=== PATIENT | male | born 1975 | race Caucasian/White ===

== ENCOUNTER → 2016-12-13 | Outpatient (CLI) | payer OTHER ==
[2016-04-21 19:01] VITALS: BP 120/82
--- NOTE | 2016-12-13 13:55 | RAD ---
3 views lumbar spine 12/13/2016 Clinical indication: Disability evaluation. Comparison: None. Findings: Right upper quadrant cholecystectomy clips. There is straightening of the normal lumbar lordosis which may be positional. Vertebral body heights and disc spaces maintained. No acute lumbar spine fracture or subluxation. Impression: No acute osseous abnormality.
== END | disposition home or self-care (01) ==
LOC: RAD 10:17
PROVIDERS: ATTEND Neuromusculoskeletal Medicine, Sports Medicine
DX: M54.5 Low back pain (principal)
CPT/HCPCS: 72100

== ENCOUNTER → 2017-04-02 | Outpatient (CLI) | payer OTHER ==
[2016-04-21 19:01] VITALS: BP 120/82
[2017-04-02 19:55] LABS: BASO # 0.1 x10^3/uL (0.0-0.2); BASO % 1 % (0-3); EOS # 0.2 x10^3/uL (0.0-0.7); EOS % 3 % (0-3); HEMATOCRIT 45.2 % (39.0-53.0); HEMOGLOBIN 15.3 g/dL (13.0-17.5); LYMPH # 2.5 x10^3/uL (1.0-4.8); LYMPH % 38 % (24-48); MEAN CORPUSCULAR HEMOGLOBIN 30 pg (25-35); MEAN CORPUSCULAR HGB CONC 34 g/dL (31-37); MEAN CORPUSCULAR VOLUME 89 fL (79-100); MONO # 0.5 x10^3/uL (0.0-1.1); MONO % 8 % (0-9); NEUT # 3.2 x10^3uL (1.8-7.7); NEUT % 50 % (31-73); PLATELET COUNT 184 x10^3/uL (140-400); RED BLOOD COUNT 5.11 x10^6/uL (4.30-5.70); WHITE BLOOD COUNT 6.5 x10^3/uL (4.0-11.0)
[2017-04-02 20:01] LABS: ALBUMIN 3.5 g/dL (3.4-5.0); ALBUMIN/GLOBULIN RATIO 1.1 (1.0-1.7); CALCIUM 8.3 mg/dL (8.5-10.1); CREATININE 1.1 mg/dL (0.7-1.3); GFR 73.1; POTASSIUM 4.5 mmol/L (3.5-5.1); TOTAL BILIRUBIN 0.1 mg/dL (0.2-1.0); TOTAL PROTEIN 6.7 g/dL (6.4-8.2)
[2017-04-02 22:54] LABS: % BASOS 1 % (0-3); % EOS 2 % (0-5); % LYMPHS 32 % (24-48); % MONOS 6 % (0-10); % SEGS 50 % (35-66)
[2017-04-02 22:55] LABS: PLT ESTIMATE ADEQUATE (ADEQUATE)
[2017-04-03 12:43] LABS: THYROID STIM HORMONE (TSH) 2.529 uIU/mL (0.358-3.740)
== END | disposition home or self-care (01) ==
LOC: SPEC 18:12
PROVIDERS: ATTEND Nurse Practitioner
DX: R53.83 Other fatigue (principal); R79.89 Other specified abnormal findings of blood chemistry; F17.200 Nicotine dependence, unspecified, uncomplicated; F10.10 Alcohol abuse, uncomplicated; F12.10 Cannabis abuse, uncomplicated
CPT/HCPCS: 36415; 80053; 80061; 84443; 85007; 85025

== ENCOUNTER 2020-11-21 20:56 | Emergency (ER) | payer OTHER ==
[~2020-11-21] VITALS: Ht 162.6 cm; Wt 94.6 kg
--- NOTE | 2020-11-21 21:11 | PHYS DOC ---
Past History Past Medical History: No Pertinent History Past Surgical History: Appendectomy, Cholecystectomy Smoking: Less than 1pk/day Alcohol Use: Heavy Drug Use: Marijuana, Methamphetamine General Adult EDM: Chief Complaint: RIB PAIN HPI: HPI: ".. I got this bad rib pain here on Lt. .. .Maybe got it lift heavy shit.. it funny.... I was helping a friend in his garage... but the pain did not start until later.. It been going on about over a week.. and not getting better...".." Maybe I ripped something... ".." I just did nt start right away.. ".. :" The pain has been constant tonight..." Patient is a 45 year old male who presents with above hx and complaints Lt chest wall pain. Pt. rates pain /10.. worse with any movement, deep breaths , cough or twisting movement. Patient has been complaining of some diaphoresis complaints. Pt. does smoke. Patient in past has used methamphetamine but currently not use any drug. Patient denies any history of cardiac disorders. Patient has had some problems with hypertension in the past. Patient does have a strong family history with mother and father both at age 50s due to hypertension and myocardial infarction. Does have 1 sister she has no health problems. No recent travel. No specific ill contacts. 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 Patient also lifts while working at [employer]. Patient states pain is so uncomfortable night he cannot get to sleep. Review of Systems: Review of Systems: Constitutional: Denies fever or chills Eyes: Denies change in visual acuity HENT: Denies nasal congestion or sore throat Respiratory: Denies cough or shortness of breath Cardiovascular: Denies chest pain or edema GI: Denies abdominal pain, nausea, vomiting, bloody stools or diarrhea : Denies dysuria Musculoskeletal: Denies back pain or joint pain Integument: Denies rash Neurologic: Denies headache, focal weakness or sensory changes Endocrine: Denies polyuria or polydipsia Lymphatic: Denies swollen glands Psychiatric: Denies depression or anxiety Family History: Family History: Father of MS and hypertension age 50. Mother of MS age 50s with hypertension MS Current Medications: Current Meds: See nursing for home meds Allergies: Allergies: Allergies Coded Allergies Type Severity Reaction Last Updated Verified codeine Allergy Unknown 08/25/13 Yes hydrocodone Allergy Unknown 11/21/20 Yes Physical Exam: PE: Constitutional: Moderate acute distress, non-toxic appearance. [] HENT: Normocephalic, atraumatic, bilateral external ears normal, oropharynx moist, no oral exudates, nose normal. Poor dentition Eyes: PERRLA, EOMI, conjunctiva normal, no discharge. [] Neck: Normal range of motion, no tenderness, supple, no stridor. [] Cardiovascular:Heart rate regular rhythm, no murmur, PMI to the left. Monitor at bedside shows somewhat of J-point elevation . Lungs & Thorax: Bilateral breath sounds equal apex with scattered wheezes on auscultation []. Does seem to have some left wall tenderness on palpation Abdomen: Bowel sounds normal, soft, no tenderness, no masses, no pulsatile masses. Obese. Old surgery scars Skin: Warm, diaphoretic, no erythema, no rash. [] Back: No tenderness, no CVA tenderness. [] Extremities: No tenderness, no cyanosis, no clubbing, ROM intact, no edema. No cording appreciated Neurologic: Alert and oriented X 3, normal motor function, normal sensory function, no focal deficits noted. [] Psychologic: Affect anxious, judgement normal, mood normal. [] EKG: EKG: My interpretation EKG shows a sinus rhythm with a right bundle branch block. No findings of acute STEMI or contralateral changes. Time of EKG is 2308 Radiology/Procedures: Radiology/Procedures: [][address] [address] IMAGING REPORT Signed PATIENT: OLIVIER ZABALA ACCOUNT: [id number] : 1975 LOCATION: ER AGE: 45 SEX: M EXAM STATUS: REG ER ORD. PHYSICIAN: KALEN ANGELES MD REASON: Pleurisy chest wall pain left, OMNI 350, 100ml PROCEDURE: CT ANGIOGRAPHY CHEST INDICATION: Reason: Pleurisy chest wall pain left, OMNI 350, 100ml / Spl. Instructions: / History: COMPARISON: Chest x-ray same day TECHNIQUE: Axial CT images obtained through the chest. Intravenous contrast utilized. Angiogram 3D images processed per protocol. One or more of the following individualized dose reduction techniques were utilized for this examination: 1. Automated exposure control; 2. Adjustment of the mA and/or kV according to patient size; 3. Use of iterative reconstruction technique. FINDINGS: Minimal dependent opacities at left lung base could be from atelectasis. Linear opacity right lung which can be seen with atelectasis or scarring. No evidence of pneumothorax. Nonobstructive left renal stone. Partially visualized liver is low density which can be seen with fatty infiltration. Mildly prominent lymph node precarinal region measuring 9 mm short axis. There is only a small amount of contrast within the thoracic aorta therefore the lumen is limited evaluation. No aneurysm is seen. Mildly prominent lymph nodes left axilla measuring up to 9 mm short axis. There are some degenerative changes of the spine. Mild loss of height of T4 vertebral body. IMPRESSION: No central pulmonary embolus. Borderline size lymph node precarinal region as well as left axilla. Mild compression deformity T4 Electronically signed by: Rony Alford MD (11/22/2020 12:38 AM) DESKTOP- [id number] DICTATED AND SIGNED BY: RONY ALFORD MD DATE: 11/22/2028 CC: KALEN ANGELES MD; PCP,NO ~MTH0 [address] [place] [address] IMAGING REPORT Signed PATIENT: OLIVIER ZABALA ACCOUNT: [id number] : 1975 LOCATION: ER AGE: 45 SEX: M EXAM STATUS: REG ER ORD. PHYSICIAN: KALEN ANGELES MD REASON: cp, injury Lt chest wall, MID LEFT CHEST PAIN ANT.-POST. PROCEDURE: CHEST PA & LATERAL Exam: Chest 2 views INDICATION: Injury, left chest wall TECHNIQUE: Frontal and lateral views of the chest Comparisons: None FINDINGS: The cardiomediastinal silhouette and pulmonary vessels are within normal limits. The lung and pleural spaces are clear. IMPRESSION: No acute cardiopulmonary process. Electronically signed by: Selena Rader MD (11/21/2020 10:17 PM) [facility] DICTATED AND SIGNED BY: SELENA RADER MD DATE: 11/21/206 CC: KALEN ANGELES MD; PCP,NO ~MTH0 0 Heart Score: C/O Chest Pain: Yes HEART Score for Chest Pain: HEART Score for Chest Pain Response (Comments) Value History Moderately Suspicious 1 ECG Nonspecific Repolarizatio 1 Age >45 - < 65 1 Risk Factors 1 or 2 Risk Factors 1 Troponin >1-<3x Normal Limit 1 Total 5 Risk Factors: Risk Factors: DM, Current or recent (<one month) smoker, HTN, HLP, family history of CAD, obesity. Risk Scores: Score 0 - 3: 2.5% MACE over next 6 weeks - Discharge Home Score 4 - 6: 20.3% MACE over next 6 weeks - Admit for Clinical Observation Score 7 - 10: 72.7% MACE over next 6 weeks - Early Invasive Strategies Course & Med Decision Making: Course & Med Decision Making Pertinent Labs and Imaging studies reviewed. (See chart for details) Discussed presentation, testing and tx plan with Dr. Lira, requested pt. transfer to [facility] Discussed presentation, testing and tx.plan with Dr. Mireles- accept pt in transfer for cardiology consult.0001 Hrs. Discussed presentation, testing and tx plan with Dr. Wren-0015 hrs. Impression: 1. Chest Pain 2. MS- Trop. 0.057 3. HTN 4. Tobacco use [] Dragon Disclaimer: Dragon Disclaimer: This electronic medical record was generated, in whole or in part, using a voice recognition dictation system. Departure Departure: Referrals: PCP,NO (PCP) KALEN ANGELES MD Nov 21, 2020 21:11
[2020-11-21] MEDS ORDERED: KETOROLAC 60 MG/2 ML VIAL. IM ONE (21:15)
--- NOTE | 2020-11-21 22:20 | RAD ---
Exam: Chest 2 views INDICATION: Injury, left chest wall TECHNIQUE: Frontal and lateral views of the chest Comparisons: None FINDINGS: The cardiomediastinal silhouette and pulmonary vessels are within normal limits. The lung and pleural spaces are clear. IMPRESSION: No acute cardiopulmonary process. Electronically signed by: Selena Hancock MD (11/21/2020 10:17 PM) BERENICE
[2020-11-21] MEDS ORDERED: IOHEXOL 350 MG/ML 100 ML VIAL. IV ONE (22:30)
[2020-11-21] MEDS ORDERED: CONTRAST GIVEN. MC PRN (22:30)
[2020-11-21] MEDS ORDERED: IV RINGERS SOLUTION,LACTATED 1,000 ML IV SCH (22:30)
[2020-11-21 23:23] LABS: BASO % 0 % (0-3); EOS # 0.2 x10^3/uL (0.0-0.7); EOS % 2 % (0-3); HEMATOCRIT 45.4 % (39.0-53.0); HEMOGLOBIN 15.4 g/dL (13.0-17.5); LYMPH # 2.4 x10^3/uL (1.0-4.8); LYMPH % 30 % (24-48); MEAN CORPUSCULAR HEMOGLOBIN 30 pg (25-35); MEAN CORPUSCULAR HGB CONC 34 g/dL (31-37); MEAN CORPUSCULAR VOLUME 88 fL (79-100); MONO # 0.6 x10^3/uL (0.0-1.1); MONO % 8 % (0-9); NEUT # 4.6 x10^3uL (1.8-7.7); NEUT % 59 % (31-73); PLATELET COUNT 225 x10^3/uL (140-400); RED BLOOD COUNT 5.15 x10^6/uL (4.30-5.70); RED CELL DISTRIBUTION WIDTH 13.5 % (11.5-14.5); WHITE BLOOD COUNT 7.7 x10^3/uL (4.0-11.0)
[2020-11-21 23:32] LABS: CALCIUM 9.1 mg/dL (8.5-10.1); CREATININE 1.2 mg/dL (0.7-1.3); GFR 64.9; POTASSIUM 4.5 mmol/L (3.5-5.1)
[2020-11-21 23:45] LABS: ALBUMIN 4.1 g/dL (3.4-5.0); DIRECT BILIRUBIN 0.1 mg/dL (0.0-0.2); TOTAL BILIRUBIN 0.3 mg/dL (0.2-1.0); TOTAL PROTEIN 8.3 g/dL (6.4-8.2)
[2020-11-21] MEDS ORDERED: ENOXAPARIN ** NOTE DOSE ** SYRINGE SQ ONE (23:45)
[2020-11-21] MEDS ORDERED: NITROGLYCERIN OINT 1 GM PACKET. TP ONE (23:45)
[2020-11-21] MEDS ORDERED: ASPIRIN 325 MG TABLET PO ONE (23:45)
--- NOTE | 2020-11-21 23:48 | EKG ---
[address] [address] Test Date: 2020-11-21 Test Time: 23:08:57 Pat Name: OLIVIER ZABALA Department: Room: Gender: M Financial Services Consultant: : 1975 Requested By: KALEN ANGELES Order Number: [id number] Reading MD: Measurements Intervals [place] Rate: 83 P: 62 UT: 148 QRS: 34 QRSD: 90 T: 43 QT: 382 QTc: 449 Interpretive Statements SINUS RHYTHM INCOMPLETE RIGHT BUNDLE BRANCH BLOCK OTHERWISE NORMAL ECG RI6.02 No previous ECG available for comparison
[2020-11-22 00:15] LABS: BARBITURATES NEG (NEG); BENZODIAZEPINES NEG (NEG); CANNABINOIDS NEG (NEG); COCAINE NEG (NEG); METHADONE NEG (NEG); OPIATES NEG (NEG); PHENCYCLIDINE NEG (NEG)
[2020-11-22 00:16] LABS: AMPHETAMINE/METHAMPHETAMINE NEG (NEG)
--- NOTE | 2020-11-22 00:41 | RAD ---
INDICATION: Reason: Pleurisy chest wall pain left, OMNI 350, 100ml / Spl. Instructions: / History: COMPARISON: Chest x-ray same day TECHNIQUE: Axial CT images obtained through the chest. Intravenous contrast utilized. Angiogram 3D images proce ssed per protocol. One or more of the following individualized dose reduction techniques were utilized for this examinat ion: 1. Automated exposure control; 2. Adjustment of the mA and/or kV according to patient size; 3 . Use of iterative reconstruction technique. FINDINGS: Minimal dependent opacities at left lung base could be from atelectasis. Linear opacity right lung which can be seen with atelectasis or scarring. No evidence of pneumothorax. Nonobstructive left renal stone. Partially visualized liver is low density which can be seen with fatty infiltration. Mildly prominent lymph node precarinal region measuring 9 mm short axis. There is only a small amount of contrast within the thoracic aorta therefore the lumen is limited dada luation. No aneurysm is seen. Mildly prominent lymph nodes left axilla measuring up to 9 mm short axi s. There are some degenerative changes of the spine. Mild loss of height of T4 vertebral body. IMPRESSION: No central pulmonary embolus. Borderline size lymph node precarinal region as well as left axilla. Mild compression deformity T4 Electronically signed by: Perez Maki MD (11/22/2020 12:38 AM) [id number]
[2020-11-22 00:48] LABS: BILIRUBIN,URINE NEG (NEG); CLARITY,URINE CLEAR; COLOR,URINE YELLOW; GLUCOSE,URINE NEG (NEG)
[2020-11-22 00:49] LABS: BACTERIA,URINE 0 /HPF (0-FEW); NITRITE,URINE NEG (NEG); RBC,URINE 0 /HPF (0-2); SQUAMOUS EPITHELIAL CELL,UR OCC /LPF; UROBILINOGEN,URINE 0.2 mg/dL (0.2 mg/dL); WBC,URINE 0 /HPF (0-4)
[2020-11-22 01:16] VITALS: BP 132/75
== END 2020-11-22 01:39 | disposition short-term general hospital (02) ==
LOC: ER 20:56
DX: R07.89 Other chest pain (principal); I10 Essential (primary) hypertension; I25.2 Old myocardial infarction; F12.10 Cannabis abuse, uncomplicated; F15.10 Other stimulant abuse, uncomplicated; F17.200 Nicotine dependence, unspecified, uncomplicated; Z88.5 Allergy status to narcotic agent; Z90.49 Acquired absence of other specified parts of digestive tract
CPT/HCPCS: 36415; 71046; 71275; 80048; 80061; 80076; 80307; 81001; 82150; 82550; 83690; 83880; 84484; 85025; 93005; 96360; 96361; 96372; 99285; J1650; J1885; J7120; Q9967